=== PATIENT | male | born 1990 | race Two or more races ===

== ENCOUNTER 2018-07-31 19:58 | Emergency (ER) | payer OTHER ==
[2018-07-31] MEDS ORDERED: LIDOCAINE 2% VISCOUS SOLN 20 ML UDCUP PO ONE (23:45)
[2018-08-01] MEDS ORDERED: IBUPROFEN 600 MG TABLET PO ONE (00:09)
[2018-08-01 00:11] VITALS: BP 136/91
--- NOTE | 2018-08-01 00:14 | ER Document Report ---
ED General - General Chief Complaint: Toothache Stated Complaint: TOOTHACHE Time Seen by Provider: 08/01/18 00:09 Notes: Pleasant 28-year-old male presents to the emergency department for dental pain. He states that he has 2 broken teeth #2 and #15. He states that he tried to go to the dentist this evening but they closed today then he could not do it so he came to the emergency department for symptomatic treatment. He states this is an ongoing thing. He denies any fevers, chills, infectious symptoms. He denies any swelling in his mouth, drooling, foul smell coming from his mouth. He has no other symptoms. TRAVEL OUTSIDE OF THE [place] IN LAST 30 DAYS: No - Related Data Allergies/Adverse Reactions: No Known Allergies Allergy (Unverified 07/31/18 23:45) Past Medical History - Social History Smoking Status: Never Smoker Chew tobacco use (# tins/day): No Drug Abuse: None Family History: Reviewed & Not Pertinent Patient has suicidal ideation: No Patient has homicidal ideation: No Renal/ Medical History: Denies: Hx Peritoneal Dialysis Review of Systems - Review of Systems Constitutional: See HPI EENT: See HPI Cardiovascular: No symptoms reported Respiratory: No symptoms reported Gastrointestinal: No symptoms reported Genitourinary: No symptoms reported Male Genitourinary: No symptoms reported Musculoskeletal: No symptoms reported Skin: See HPI Hematologic/Lymphatic: No symptoms reported Neurological/Psychological: No symptoms reported Physical Exam - Vital signs Vitals: Temp Pulse Resp BP Pulse Ox 98 F 75 18 163/98 H 99 07/31/18 20:20 07/31/18 20:20 07/31/18 20:20 07/31/18 20:20 07/31/18 20:20 - Notes Notes: Reviewed vital signs and nursing note as charted by RN. CONSTITUTIONAL: Well-appearing, well-nourished, acting appropriately for age HEAD: Normocephalic, atraumatic, no swelling EYES: PERRL, Conjunctivae clear, no drainage, EOMI, no scleral icterus ENT: External ears without lesions, External auditory canal is patePharynx without erythema or lesions, no tonsillar hypertrophy, airway patent, mucous membranes pink and moist NECK: Supple, no cervical lymphadenopathy, no masses EXT: Normal ROM in all joints, non-tender to palpation, no effusions, no edema SKIN: Normal color for age and race, warm, dry, good turgor, no acute lesions noted, no gingivitis or signs of infection in the mouth NEURO: No facial asymmetry, moves all extremities equally, motor and sensory function intact Course - Re-evaluation Re-evalutation: 08/01/18 00:12 Pleasant 28-year-old male presents to the emergency department for tooth pain in #2 in 15 teeth. He was unable to get to the dentist today and was just seeking symptomatic relief. No evidence of any infection, gingivitis, edema, foul smell. No evidence of any peritonsillar abscess. Patient will be treated with viscous lidocaine symptomatically, prescription for Tessalon Perles that he can crack open apply topically 3 times a day, and 600 mg of Motrin. Patient states he is going to go to the dentist in the morning. Patient is safe and stable for discharge. - Vital Signs Vital signs: Temp Pulse Resp BP Pulse Ox 98 F 75 18 163/98 H 99 07/31/18 20:20 07/31/18 20:20 07/31/18 20:20 07/31/18 20:20 07/31/18 20:20 Discharge - Discharge Clinical Impression: Tooth ache Condition: Good Disposition: HOME, SELF-CARE Instructions: Toothache ([facility]) Prescriptions: Benzonatate [Tessalon Perles 100 mg Capsule] 100 mg PO Q8HP PRN #40 capsule PRN Reason:
== END 2018-08-01 00:20 | disposition home or self-care (01) ==
LOC: ER 19:58
DX: K08.89 Other specified disorders of teeth and supporting structures (principal)
CPT/HCPCS: 99282; J3490